=== PATIENT | female | born 1975 | race Caucasian/White ===

== ENCOUNTER → 2018-02-02 | Outpatient (CLI) | payer MEDICAID ==
[~2018-02-02] MED LIST: ADDERALL20 MG PO; CLEOCIN HC150 MG/CAP PO; DOXYCYCLINE HY100 MG PO; ZITHROMAX Z PA250 MG PO
[2018-02-02 15:42] LABS: BASO # 0.1 (0.0-0.2); BASO % 0.8 % (0.0-2.0); EOS # 0.3 (0.0-0.7); GRAN # 4.3 (1.4-6.5); GRAN % 50.6 % (42.2-75.2); LYMPH # 3.3 (1.2-3.4); LYMPH % 38.8 % (20.0-51.0); MEAN CELL VOLUME 88 fl (80.0-100.0); MEAN CORPUSCULAR HEMOGLOBIN 29 pg (27.0-31.0); MEAN CORPUSCULAR HGB CONC 33 g/dl (33.0-37.0); MEAN PLATELET VOLUME 10.6 fl (7.4-10.4); MONO # 0.6 (0.1-0.6); MONO % 6.6 % (1.7-9.3); PLATELET COUNT 339 K/mm3 (130-400); RED BLOOD COUNT 4.14 M/mm3 (4.10-5.30); REDCELL DISTRIBUTION WIDTH-CV 14.1 % (11.5-14.5)
[2018-02-02 15:45] LABS: HEMATOCRIT 36.6 % (37.0-47.0)
[2018-02-02 15:47] LABS: ALBUMIN 4.2 gm/dL (3.5-5.0); BILIRUBIN,TOTAL 0.3 mg/dL (0.0-1.0); CALCIUM 9.1 mg/dL (8.4-10.2); CREATININE, serum 0.79 mg/dL (0.52-1.25); POTASSIUM 4.4 mmol/L (3.4-5.0); TOTAL PROTEIN 7.1 gm/dL (6.4-8.2)
[2018-02-02 16:26] LABS: TSH w REFLEX 1.55 uIU/mL (0.465-4.680)
== END ==
LOC: COL.LAB 12:56
PROVIDERS: Family Medicine
DX: K59.00 Constipation, unspecified (principal); M54.5 Low back pain; R53.83 Other fatigue; R50.9 Fever, unspecified